=== PATIENT | male | born 1970 | race Caucasian/White ===

== ENCOUNTER → 2020-02-01 | Outpatient (CLI) | payer BC ==
--- NOTE | 2020-02-04 08:13 | RAD ---
EXAM: Chest,2 Views CLINICAL HISTORY: FEVER COMPARISON STUDY: None TECHNICAL: Posteroanterior (PA) and lateral views of the chest were performed. FINDINGS: No consolidations, effusions, or edema. The heart size is not enlarged. No acute osseous abnormality. IMPRESSION: NEGATIVE CHEST XRAY. Electronically signed by: Alin Manjarrez MD 02/04/2020 8:12 AM CDT
== END ==
LOC: LAB.O 12:48
PROVIDERS: ATTEND Nurse Practitioner Family
DX: I10 Essential (primary) hypertension (principal); R50.9 Fever, unspecified

== ENCOUNTER → 2020-02-02 | Outpatient (CLI) | payer BC | LOC: LAB.O 10:13 | PROVIDERS: ATTEND Nurse Practitioner Family | DX: I10 Essential (primary) hypertension (principal) ==